=== PATIENT | female | born 1955 | race Caucasian/White ===

== ENCOUNTER 2021-01-27 08:02 | Day surgery (SDC) | payer MEDICARE, OTHER ==
[~2021-01-27] VITALS: Ht 154.9 cm; Wt 156.4 kg
--- NOTE | ~2021-01-27 | HEMODYNAMI ---
PATIENT:BEKAH BUSTOS MEDICAL RECORD: [id number] : 55 LOCATION:[facility] ADMISSION DATE: 01/27/21 Generatedon:113:46 Patient name: BEKAH BUSTOS Patient #: [id number] SSN: : 1955 Date of study: 01/27/2021 Page: Of Hemodynamic Procedure Report Patient Data Patient Demographics Procedure consent was obtained First Name: BEKAH Gender: Female Last Name: AKASH : 1955 Patient #: [id number] Age: 65 year(s) Race: Additional ID: [id number] Contact details [address]: [address] [place] [address] State: [place] City: [place] Zip code: [address] Past Medical History Allergies Allergen Reaction Date Comments Reported Other allergy 01/27/2021 METFORMIN, PCN, VALTREX, SULFA Admission Admission Data Admission Date: 01/27/2021 Admission Time: 8:02 Arrival Date: 01/27/2021 Arrival Time: 0:00 Admit Source: Other Insurance Payor: Medicare [facility] #: [id number] Height (in.): 61 BSA: 2.38 (m2) Height (cm.): 154.94 BMI: 65.13 (kg/m2) Weight (lbs.): 344.72 Weight (kg.): 156.36 Lab Results Lab Result Date: 01/27/2021 Lab Result Time: 0:00 Biochemistry Name Units Result Min Max BUN mg/dl 16 --(---*)-- 7 18 Creatinine mg/dl 0.8 --(-*--)-- 0.6 1.3 eGFR ml/min 76.09992 *-(----)-- 90 120 NONAFRICAN CBC Name Units Result Min Max Hematocrit % 41.9 -*(----)-- 42 54 Hemoglobin g/dl 13.6 --(*---)-- 13.5 17.5 Procedure Procedure Types Cath Procedure Diagnostic Procedure [facility] w/Coronaries Sedation Charges Moderate Sedation 10-24 minutes Procedure Description Procedure Date Procedure Date: 01/27/2021 Procedure Start Time: 13:31 Procedure End Time: 13:45 Procedure Staff Name Function Sriinvas Ortiz MD Performing Physician Yesica Maldonado RT Monitor Luis Ngo RT Scrub Jose Johnson RN Nurse Procedure Data Cath Procedure Fluoroscopy Diagnostic fluoroscopy Total fluoroscopy Time: 3.6 time: 3.6 min min Diagnostic fluoroscopy Total fluoroscopy dose: 870 dose: 870 mGy mGy Contrast Material Contrast Material Type Amount (ml) Isovue 370 58 Entry Location Entry Primary Successful Side Size Upsize Upsize Entry Closure Mcfarlane ccessful Closure Location (Fr) 1 (Fr) 2 (Fr) Remarks Device Remarks Femoral Right 6 Fr Mechanical artery Short Compression Estimated blood loss: 5 ml Diagnostic catheters Device Type Used For End Catheter Placement DIAGNOSTIC Register 110cm 5 Procedure Fr catheter ([id number]) DIAGNOSTIC Arian 110cm Procedure 5Fr catheter ([id number]) Procedure Complications No complications Procedure Medications Medication Administration Route Dosage Oxygen etCO2 Nasal cannula 2 l/min Lidocaine 2% added to field 20 Heparin Flush Bag added to field 2 bags (1000units/500ml NS) 0.9% NaCl I.V. 100 ml/hr Fentanyl I.V. 100 mcg Fentanyl I.V. 100 mcg Versed I.V. 2 mg Versed I.V. 2 mg Fentanyl I.V. 100 mcg Radial Cocktail I.A. 1 syringe (Verapamil 2mg/Nitro 400mcg/Heparin 1500units) Versed I.V. 1 mg Fentanyl I.V. 25 mcg Hemodynamics Rest BSA: 2.38 (m2) HGB: 13.6 (g/dl) O2 Consumption: Estimated: 229.96 (ml/min) O2 Co nsumption indexed: Estimated:96.62 (ml/min/m) Heart Rate: 78 (bpm) Pressure Samples Time Site Value (mmHg) Purpose Heart Use Rate(bpm) 13:35 LV 140/37,43 Snapshot 87 Gradients Valve Time Site Site Mean SEP/DFP Peak To Heart Use 1 2 (mmHg) (sec/min) Peak Rate (mmHg) (bpm) Aortic 13:36 LV AO 50 Snapshots Pre Cath Intra NCS Post Cath Vital Signs Time Heart Resp SPO2 etCO2 NIBP (mmHg) Rhythm Pain Sedation Rate (ipm) (%) (mmHg) Status Level (bpm) 11:17:48 80 26 100 0 165/96(133) NSR 0 (11) 10(A) , No pain 11:22:06 78 19 100 37.4 174/89(111) NSR 0 (11) 10(A) , No pain 11:26:26 78 14 100 35.9 153/83(110) NSR 0 (11) 10(A) , No pain 11:30:48 79 19 100 26.9 140/71(97) NSR 0 (11) 10(A) , No pain 11:35:04 79 18 96 47.2 133/73(111) NSR 0 (11) 10(A) , No pain 11:39:16 78 19 96 29.9 131/79(102) NSR 0 (11) 10(A) , No pain 11:43:28 76 14 98 41.9 139/79(101) NSR 0 (11) 10(A) , No pain 11:47:44 77 18 98 41.9 143/73(102) NSR 0 (11) 10(A) , No pain 11:52:00 74 19 100 42.6 138/75(106) NSR 0 (11) 10(A) , No pain 11:56:14 74 16 100 41.9 135/79(101) NSR 0 (11) 10(A) , No pain 12:00:28 73 20 100 38.1 128/72(101) NSR 0 (11) 10(A) , No pain 12:04:40 76 17 100 41.2 136/72(111) NSR 0 (11) 10(A) , No pain 13:13:15 79 27 100 39.6 Measuring NSR 0 (11) 10(A) , No pain 13:19:24 77 15 100 40.4 173/136(168) NSR 0 (11) 10(A) , No pain 13:25:32 81 25 100 13.4 156/79(119) NSR 0 (11) 10(A) , No pain 13:29:42 79 16 95 14.2 137/79(104) NSR 0 (11) 10(A) , No pain 13:33:54 83 14 95 21.6 151/79(102) NSR 0 (11) 10(A) , No pain 13:38:14 87 20 95 25.4 135/64(92) NSR 0 (11) 10(A) , No pain 13:42:26 87 24 95 27.6 138/73(92) NSR 0 (11) 10(A) , No pain Medications Time Medication Route Dose Verified Delivered Reason Notes Effectiveness by by 11:26:04 Fentanyl I.V. 100 mcg Srinivas Buffie for back Angel Johnson RN pain 11:26:45 Oxygen etCO2 2 l/min Srinivas Buffie used for Nasal Angel Johnson RN procedure cannula 11:26:52 Lidocaine 2% added 20ml Srinivas Srinivas for local to vial Angel Ortiz MD anesthetic field 11:26:58 Heparin Flush added 2 bags Srinivas Srinivas used for Bag to Angel Ortiz MD procedure (1000units/500ml field NS) 11:27:08 0.9% NaCl I.V. 100 Srinivas Buffie Per ml/hr Angel Johnson RN physician 11:45:10 Fentanyl I.V. 100 mcg Srinivas Buffie for back PT STA ALMAS Johnson RN pain ROTATOR CUFF INJURY AND CHRONIC BACK PAIN AND LYING ON BED FLAT IS HURTING HER. ANGEL NOTIFIED AND MEDICATION ORDERED. 11:59:13 Versed I.V. 2 mg Srinivas Buffie for anxiety PT STA ALMAS Johnson RN NERVOUS, MEDICATION ORDERED FOR CONDITION. 13:30:24 Versed I.V. 2 mg Srinivas Buffie for sedation Angel Johnson RN 13:30:32 Fentanyl I.V. 100 mcg Srinivas Buffie for sedation Angel Johnson RN 13:33:28 Radial Cocktail I.A. 1 Srinivas Srinivas for (Verapamil syringe Angel Ortiz MD vasodilation 2mg/Nitro 400mcg/Heparin 1500units) 13:37:17 Versed I.V. 1 mg Srinivas Srinivas for sedation Angel Ortiz MD 13:37:22 Fentanyl I.V. 25 mcg Srinivas Srinivas for sedation Angel Ortiz MD Procedure Log Time Note 11:01:34 Informed consent obtained and on chart 11:01:42 Diagnostic Cath Status : Elective 11:01:57 Arrival Date: 01/27/2021 12:00:00 AM 11:01:58 Admit Source: Other 11:02:01 Insurance Payor : Medicare 11:04:00 Jose Johnson RN sent for patient. Start room use. 11:05:38 Patient Height : 61 inches 11:05:41 Patient Weight : 344.72 lbs 11::40 Lab Result : BUN 16 mg/dl 11::40 Lab Result : eGFR NONAFRICAN 76.00168 ml/min 11::40 Lab Result : Creatinine 0.8 mg/dl 11::40 Lab Result : Hemoglobin 13.6 g/dl ::40 Lab Result : Hematocrit 41.9 % 11::41 ACC Patient presents with Stable Angina CCS Anginal Class 2--Slight limitation of ordinary activity. 11:09:44 Procedure Status Elective Heart Cath (OP). 11:10:03 Time tracking: Regular hours (M-F 7:00 - 5:00) 11:10:08 Plan of Care:Hemodynamics will remain stable., Cardiac rhythm will remain stable., Comfort level will be maintained., Respiratory function will remain adequate., Patient/ family verbilizes understanding of procedure., Procedure tolerated without complication., Recovers from procedure without complications.. 11:10:12 Patient received from Pre/Post Procedure Room to CCL 1 Alert and oriented. Tansferred to table in Supine position. 11:10:14 Warm blankets applied, and lew hugger turned on for patient comfort. 11:10:14 Correct patient and procedure confirmed by team. 11:10:15 ECG and BP/O2 sat monitors applied to patient. 11:10:18 H&P Date Dictated: 01/27/2021 New H&P dictated by physician.. 11:10:19 Pre-procedure instructions explained to patient. 11:10:20 Pre-op teaching completed and patient verbalized understanding. 11:10:21 Family unavailable. 11:10:23 Patient NPO since Midnight. 11:10:49 Patient allergic to Other allergyMETFORMIN, PCN, VALTREX, SULFA 11:16:38 Vital chart was started 11:16:39 Full Disclosure recording started 11:20:00 Baseline sample Acquired. 11:20:05 Rhythm: sinus rhythm 11:20:11 Is the patient allergic to Iodine/contrast media? No. 11:20:17 Was the patient premedicated? Yes 11:20:18 Is patient on blood thinner?No 11:20:20 Patient diabetic? No. 11:20:21 If diabetic: On Metformin? N/A 11:20:23 Patient not . Patient is over age 55. 11:20:28 ----Pre-sedation anethsthesia assessment.---- 11:20:32 Previous problem with sedation/anesthesia? No ? 11:20:33 Snore? Yes 11:20:34 Sleep apnea? Yes 11:20:35 Deviated septum? No 11:20:36 Opens mouth fully? Yes 11:20:37 Sticks out tongue? Yes 11:20:42 Airway obstruction? Yes ASTHMA 11:20:46 Dentures? Yes IN TIGHT 11:20:49 Pre procedure: right dorsailis pedis pulse 1+ Palpable, but thready & weak; easily obliterated 11:20:52 Modified Ryan's test Ulnar < 7 seconds 11:20:55 Patient pain scale 0/10 ?. 11:21:00 IV patent on arrival in left antecubital with 0.9% NaCl at [facility]. 11:21:03 Lab results completed and on chart. 11:21:08 Right Radial & Right Groin area was prepped with chlora-prep and draped in sterile fashion 11:21:09 Alarms reviewed by R. N. 11:21:10 Sharps counted by scrub and verified by R.N. 11:24:28 Use device set Radial Dx or PCI 11:24:29 ACIST Syringe (74522) opened to sterile field. 11:24:30 Medline Cath Pack ([id number]) opened to sterile field. 11:24:30 Bag Decanter (2002) opened to sterile field. 11:24:31 ACIST Hand Control (89096) opened to sterile field. 11:24:31 ACIST Manifold (31281) opened to sterile field. 11:24:33 MBrace Wrist Support ([id number]) opened to sterile field. 11:24:34 NEEDLE Cook 21G 4cm Radial (R61646) opened to sterile field. 11:24:35 SHEATH 6FR RAIN (2443439) opened to sterile field. 11:24:36 EMERALD Guide Wire (567-541) opened to sterile field. 11:24:49 Stress Test: no; N/A ? 11:26:04 Fentanyl 100 mcg I.V. was administered by Jose Johnson RN; for back pain; Verbal order read back and verified. 11:26:45 Oxygen 2 l/min etCO2 Nasal cannula was administered by Jose Johnson RN; used for procedure; Verbal order read back and verified. 11:26:52 Lidocaine 2% 20ml vial added to field was administered by Srinivas Ortiz MD; for local anesthetic; Verbal order read back and verified. 11:26:58 Heparin Flush Bag (1000units/500ml NS) 2 bags added to field was administered by Srinivas Ortiz MD; used for procedure; Verbal order read back and verified. 11:27:08 0.9% NaCl 100 ml/hr I.V. was administered by Jose Johnson RN; Per physician; Verbal order read back and verified. 11:37:00 Procedure delayed due to: DIFFICULTIES IN PROCEDURE INANOTHER ROOM 11:45:10 Fentanyl 100 mcg I.V. was administered by Jose Johnson RN; for back pain; PT STATES ROTATOR CUFF INJURY AND CHRONIC BACK PAIN AND LYING ON BED FLAT IS HURTING HER. ANGEL NOTIFIED AND MEDICATION ORDERED. Verbal order read back and verified. 11:47:52 Zero performed for pressure channel P1 11:59:13 Versed 2 mg I.V. was administered by Jose Johnson RN; for anxiety; PT STATES NERVOUS, MEDICATION ORDERED FOR CONDITION. Verbal order read back and verified. 12:24:36 PT SENT BACK TO RECOVERY AND WILL BRING BACK WHEN PHYSICIAN IS AVAILABLE. 13:02:37 LUIS FLANNERY WENT TO GET PT FROM PRE/POST. 13:04:19 PT RECIEVED FROM PRE/POST FOR [facility] PROCEDURE, SUPINE. 13:24:06 Baseline sample Acquired. 13:24:52 Rhythm: sinus rhythm 13:25:03 --------ALL STOP TIME OUT------ 13:25:04 Final Timeout: patient, procedure, and site verified with staff and physician. All members of the team are in agreement. 13:25:06 Right Radial & Right Groin site verified by team. 13:25:10 Fire Safety Assessment: A--An alcohol-based skin anteseptic being used preoperatively., C--Open oxygen or nitrous oxide is being used., D--An ESU, laser, or fiber-optic light is being used. 13:25:15 Physical assessment completed. ASA score P 2 - A patient with mild systemic disease as per Srinivas Ortiz MD. 13:25:21 2) 60-89 Mildly reduced kidney function, and other findings (as for stage 1) point to kidney disease. 13:25:23 Maximum allowable contrast dose (3.7 X eGFR X 0.75)210 ml. 13:25:28 Sedation plan: IV Moderate Sedation Medication:Versed, Fentanyl 13:28:01 Zero performed for pressure channel P1 13:30:24 Versed 2 mg I.V. was administered by Jose Johnson RN; for sedation; Verbal order read back and verified. 13:30:32 Fentanyl 100 mcg I.V. was administered by Jose Johnson RN; for sedation; Verbal order read back and verified. 13:31:14 Procedure started. 13:31:30 Local anesthetic to right radial artery with Lidocaine 2% by Srinivas Ortiz MD.INITIAL ACCESS ONLY 13:32:57 A 6 Fr Short sheath was inserted into the Right Femoral artery 13:33:22 A DIAGNOSTIC Register 110cm 5 Fr catheter ([id number]) was advanced over the wire and used for Procedure. 13:33:28 Radial Cocktail (Verapamil 2mg/Nitro 400mcg/Heparin 1500units) 1 syringe I.A. was administered by Srinivas Ortiz MD; for vasodilation; Verbal order read back and verified. 13:34:09 LV gram done using KINGSLEY 13:35:12 Injector settings: Ml/sec: 5, Volume: 15, 13:35:26 LV hemodynamics recorded. 13:35:49 EF : 60 % 13:36:22 RCA angiography performed. 13:36:25 Injector settings: Ml/sec: 3, Volume: 6, 13:37:17 Versed 1 mg I.V. was administered by Srinivas Ortiz MD; for sedation; Verbal order read back and verified. 13:37:22 Fentanyl 25 mcg I.V. was administered by Srinivas Ortiz MD; for sedation; Verbal order read back and verified. 13:37:56 Catheter exchanged over wire. 13:38:06 A DIAGNOSTIC [employer] 110cm 5Fr catheter (963265) was advanced over the wire and used for Procedure. 13:39:14 LCA angiography performed. 13:39:16 Injector settings: Ml/sec: 3, Volume: 6, 13:41:16 Catheter removed. 13:41:19 ZEPHYR LARGE TR BAND (091795) opened to sterile field. 13:41:51 Sheath removed intact; hemostasis achieved with Mechanical Compression to the Right Femoral artery. 13:41:56 Fluoroscopy time 03.60 minutes. 13:42:00 Fluoroscopy dose: 870 mGy 13:42:00 Flurop Dose total: 870 13:42:06 Dose Area Product 88350 mGy/cm. 13:42:07 Procedure ended.(Physican Out) 13:42:34 Contrast amount:Isovue 370 58ml. 13:42:36 Maximum allowable dose exceeded? No. 13:42:38 Sharps counted by scrub and verified by R.N. 13:42:43 Post Procedure Pulses reassessed and unchanged 13:42:46 Post procedure: right dorsailis pedis pulse 1+ Palpable, but thready & weak; easily obliterated. 13:42:49 Post-procedure physical assessment completed. ASA score P 2 - A patient with mild systemic disease as per Srinivas Ortiz MD. 13:42:53 Post procedure rhythm: unchanged. 13:42:57 Estimated blood loss: 5 ml 13:42:58 Post procedure instruction explained to patient.Patient verbalizes understanding. 13:42:59 Patient needs reinforcement of post procedure teaching. 13:43:31 Procedure type changed to Cath procedure, Diagnostic procedure, LHC, [facility] w/Coronaries, Sedation Charges, Moderate Sedation 10-24 minutes 13:45:18 Procedure and supply charges have been captured, reviewed, submitted and are correct. 13:45:23 Procedure Complication : No complications 13:45:40 Lotus band inflated with 10cc of air. 13:45:43 [facility] Findings: mild to moderate CAD (<70%) 13:45:45 Operative report dictated upon procedure completion. 13:45:45 See physician's report for complete and final results. 13:45:47 Report given to Pre/Post Procedure Room. 13:45:50 Patient transfered to Pre/Post Procedure Room with Stretcher. 13:45:52 Procedure ended. 13:45:52 Full Disclosure recording stopped 13:45:56 End room use (Document Last) 13:46:13 End room use (Document Last) 13:46:28 End room use (Document Last) 13:46:48 Vital chart was stopped Device Usage Item Name Manufacture Quantity Catalog Hospital Part Current Minima l Lot# / Number Charge Number Stock Stock Serial# Code ACIST Acist 1 40656 149854 176623 [id number] 20 Syringe Medical (30907) Systems Inc Medline Medline 1 [id number] 986064 89118 445771 5 Cath Pack ([id number]) Bag Microtek 1 752451 41536 536316 5 Decanter Medical Inc. () ACIST Hand Acist 1 40616 376381 726609 163225 5 Control Medical (01467) Systems Inc ACIST Acist 1 75038 519219 911332 573170 5 Manifold Medical (81373) Systems Inc MBrace Advanced 1 140-0250-00 459316 05816 567561 5 Wrist Vascular Support Dynamics ([id number]) NEEDLE Stream5 Medical 1 M37335 963081 225750 983598 5 21G 4cm Radial (Z41173) SHEATH 6FR Cardinal 1 8514937 396019 7169985 141347 5 RAIN Health (4697227) EMERALD Cardinal 1 502-455 411886 572536 530207 5 Guide Wire Health (502-455) DIAGNOSTIC Terumo 1 40-5013 127800 329288 631155 5 Register 110cm 5 Fr catheter (710345) DIAGNOSTIC Terumo 1 40-5023 204288 695434 028716 5 Arian 110cm 5Fr catheter (151593) ZEPHYR Cardinal 1 671907 830274 3866864 656865 5 LARGE TR Health BAND (893928) Signature Audit [place] Stage Time Signature Unsigned Intra-Procedure 01/27/2021 Yesica Maldonado 1:46:13 PM RT(R) Intra-Procedure 01/27/2021 Jose Johnson RN 1:46:28 PM Intra-Procedure 01/27/2021 Srinivas Ortiz MD 1:46:46 PM [place] [id number] [place] [address]
[2021-01-27] MEDS ORDERED: LISINOPRIL10 MG PO (09:02)
[2021-01-27] MEDS ORDERED: LEVOTHYROXINE175 MCG PO (09:03)
[2021-01-27] MEDS ORDERED: COREG6.25 MG PO (09:04)
[2021-01-27] MEDS ORDERED: BUPROPION HCL150 M1 PO (09:05)
[2021-01-27] MEDS ORDERED: HYDROCHLOROTH12.5 M1 PO (09:06)
[2021-01-27] MEDS ORDERED: FLUTICASONE PRO16 GM NASAL (09:06)
[2021-01-27] MEDS ORDERED: KLOR-CON 1010 MEQ PO (09:06)
[2021-01-27] MEDS ORDERED: MOBIC7.5 MG PO (09:07)
[2021-01-27] MEDS ORDERED: SYMBICORT 16010.2 GM INH (09:08)
[2021-01-27] MEDS ORDERED: ALBUTEROL SULF8.5 GM INH (09:08)
[2021-01-27] MEDS ORDERED: ZYRTEC10 MG PO (09:08)
[2021-01-27] MEDS ORDERED: CEFUROXIME500 MG PO (09:10)
[2021-01-27 09:26] VITALS: BP 138/78; Ht 154.9 cm; Wt 156.4 kg
[2021-01-27 09:32] LABS: BASOPHILS 0.2 % (0-2); HEMATOCRIT 41.9 % (36.0-48.0); HEMOGLOBIN 13.6 g/dL (12-16); IMMATURE GRANULOCYTES 0.2 % (0-5); LYMPHOCYTE ABS# 1.85 10x3/uL (1.18-3.74); LYMPHOCYTES 30.7 % (15-50); MCH 29.5 pg (26.0-34.0); MCHC 32.5 g/dL (31.0-37.0); MCV 90.9 fL (80.0-100.0); MEAN PLATELET VOLUME 10.8 fL (7.4-10.4); MONOCYTES 7.6 % (2-11); NEUTROPHIL ABS# 3.58 10x3/uL (1.56-6.13); NEUTROPHILS 59.3 % (40-80); PLATELET COUNT 284 10x3/uL (130-400); RBC 4.61 10x6/uL (4.00-5.40); RDW 14.3 % (11.5-14.5)
[2021-01-27 09:45] LABS: ALT (SGPT) 21 U/L (10-68); CALC OSMOLALITY 269 mosm/kg (275-300); CALCIUM 9.3 mg/dL (8.5-10.1); CARBON DIOXIDE 30.7 mmol/L (21.0-32.0); CHLORIDE - SERUM 98 mmol/L (98-107); CHOL - HDL RATIO 2.9 ratio (2.3-4.1); CHOLESTEROL, TOTAL 183 mg/dL (0-200); CREATININE - SERUM 0.8 mg/dL (0.6-1.3); GLUCOSE 112 mg/dL (74-106); HDL CHOLESTEROL 64 mg/dL (32-96); LDL CHOLESTEROL 101 mg/dL (0-100); LDL-HDL RATIO 1.6 ratio (1.5-3.5); POTASSIUM - SERUM 4.1 mmol/L (3.5-5.1); SODIUM 134 mmol/L (136-145); TRIGLYCERIDE 91 mg/dL (30-200); UREA NITROGEN 16 mg/dL (7-18); eGFR NON AFRICAN AMERICAN 76 mL/min (90-120)
--- NOTE | 2021-01-27 13:55 | NUR ---
PT ARRIVED BY STRETCHER. PLACED ON MONITORS. ASSESSMENT COMPLETED. VSS AT THIS TIME. CALL LIGHT WITHIN REACH. FAMILY AT BEDSIDE. NO NEEDS AT THIS TIME.
--- NOTE | 2021-01-27 14:10 | NUR ---
PT RESTING COMFORTABLY. VSS AT THIS TIME. CALL LIGHT WITHIN REACH. RIGHT WRIST Z BAND IN PLACE. NO BLEEDING/HEMATOMA NOTED.
--- NOTE | 2021-01-27 14:40 | NUR ---
RIGHT WRIST Z BAND IN PLACE. NO BLEEDING/HEMATOMA NOTED. PT SITTING UP IN BED ALERT AND ORIENTED. SET UP WITH SANDWICH TRAY AND DRINK. DENIES NAUSEA/PAIN.
--- NOTE | 2021-01-27 15:11 | NUR ---
RIGHT WRIST Z BAND IN PLACE. NO BLEEDING/HEMATOMA NOTED. 2cc OF AIR REMOVED FROM Z BAND. TOLERATED WELL. SENIOR ACCOUNTING ASSOCIATE AT BEDSIDE. PT'S VSS. CALL LIGHT WITHIN REACH. NO NEEDS AT THIS TIME. DENIES NAUSEA/PAIN.
--- NOTE | 2021-01-27 15:25 | NUR ---
2cc OF AIR REMOVED FROM Z BAND. NO BLEEDING/HEMATOMA NOTED. DR. COUGHLIN ROUNDED AND SPOKE WITH PT AND PT'S FAMILY.
--- NOTE | 2021-01-27 15:40 | NUR ---
3cc OF AIR REMOVED FROM Z BAND. NO BLEEDING/HEMATOMA NOTED. VSS AT THIS TIME. CALL LIGHT WITHIN REACH. FAMILY AT BEDSIDE. NO NEEDS. DENIES NAUSEA/PAIN.
--- NOTE | 2021-01-27 15:55 | NUR ---
3cc OF AIR REMOVED FROM Z BAND. NO BLEEDING/HEMATOMA NOTED. CALL LIGHT WITHIN REACH. VSS AT THIS TIME. PT RESTING COMFORTABLY.
--- NOTE | 2021-01-27 16:10 | NUR ---
RIGHT WRIST Z BAND REMOVED AND DRESSING APPLIED. NO BLEEDING/HEMATOMA NOTED. RIGHT WRIST BRACE IN PLACE. PIV D/C'D WITH CATH TIP INTACT. TOLERATED WELL. PT INSTRUCTED TO GET UP AND DRESSED AT THIS TIME. NO ASSISTANCE NEEDED. CALL LIGHT WITHIN REACH AND FAMILY AT BEDSIDE.
--- NOTE | 2021-01-27 16:15 | NUR ---
DISCUSSED DISCHARGE INSTRUCTIONS WITH PT. SHE VOICED UNDERSTANDING.
--- NOTE | 2021-01-27 16:30 | NUR ---
PT TAKEN TO RESTROOM BY WHEELCHAIR. VOIDED WITHOUT DIFFICULTY. RIGHT WRIST DRESSING C/D/I NO S/S OF HEMATOMA NOTED. PT TAKEN OUT TO VEHICLE BY WHEELCHAIR. NO S/S OF DISTRESS NOTED. ALL BELONGINGS AND PAPERWORK IN HAND.
== END 2021-01-27 16:30 | disposition home or self-care (01) ==
LOC: D.CATH 08:02
PROVIDERS: ATTEND Internal Medicine Cardiovascular Disease
DX: R94.39 Abnormal result of other cardiovascular function study (principal); I20.0 Unstable angina; J45.909 Unspecified asthma, uncomplicated; R06.09 Other forms of dyspnea; E11.9 Type 2 diabetes mellitus without complications